=== PATIENT | female | born 1940 | race Caucasian/White ===

== ENCOUNTER → 2016-08-27 | Outpatient (CLI) | payer MEDICARE, BC ==
[~2016-08-27] MED LIST: ACET-62 PO; ACID1TAB4 PO; ASCO10007 PO; ASPI-917 PO; BENA40TA3 PO; CARB15DR54 BOTH EYES; CART1TAB5 PO; CHOL200024 PO; INDA1.255 PO; NS FOR INJ. 20 ML VIAL INJ ONE; ONABOTULINUM TOXIN A 100 UNIT IM ONE; POTA10TA16 PO; RED600CA6 PO; VITA400C19 PO; VITAMIN B PO; [UNRECOGNIZED DRUG - CODE] PO; [UNRECOGNIZED DRUG - CODE] PO
== END ==
LOC: NEU 13:37
PROVIDERS: ATTEND Psychiatry & Neurology Neurology
DX: G24.3 Spasmodic torticollis (principal)
CPT/HCPCS: 64616; 95874; J0585

== ENCOUNTER 2016-10-20 13:25 | Observation (INO) ==
--- NOTE | 2016-10-20 13:48 | History & Physical Report ---
History of Present Illness Date: Chief complaint: Left arm weakness HPI: Natalie Alejo is a 76 year old woman who was transferred from [facility] ED to [facility] on 10/20/16 for further evaluation of stroke-like symptoms. She began having "wobbling", and weakness in her left arm around 0850 on 10/20/16. These symptoms started while she was driving, and became worse, so much that her left arm was " weight" and became numb - she was unable to use it whatsoever. However, in about 2.5 hours, she regained motor function and feeling. She denies any other deficits such as dysphagia, difficulty speaking, visual changes , or mental status changes. She complained of a mild headache earlier this morning (while swimming), but that resolved. In [place], vitals were stable but there was a difference in BP from right to left: Right was 121/58 (sitting) and left was 164/67 (lying). CT head was negative for acute bleed or abnormality ; positive findings for pericallosal lipoma and atrophy. EKG was read as sinus, 1st deg AVB, incomplete RBBB. On exam, left shoulder was unable to be adequately tested b/c of chronic pain. The provider noted mild ataxia of the left fingers and wrist. WBC was normal (9.3), h&h was normal (14.4, 42.1), platelets were 268; INR was 1.0; chemistries were unremarkable (na 141, K 4.0, Cl 106, CO2 24, BUN 19, Cr 0.72); D-dimer was elevated at 831 (range 0-499). Dr. Floyd Wood, [facility], was notified, and given her low NIH scale of 1-2 with minimal deficits, did not recommend thrombolytics. By the time she arrived to [facility], her left arm was back to baseline but she stated that her head felt "funny"; and was shivering cold. She reports otherwise she's been in her typical state of health with chronic neck and shoulder problems - no fevers, cough/cold, visual changes, changes swallowing, dizziness or weakness, chest pain or dyspnea, palpitations, abdominal pain, n/v/ d, constipation, urinary problems, leg swelling, or rashes. She is currently taking ASA daily, alternating 325 mg with 81 mg (she cut back from 325 daily because she was having problems with epistaxis). She admits that she fell about 1 1/2 weeks ago, as she was trying to pull up a dandelion and lost her balance - no syncope. Mrs. Alejo was admitted to observation status at [facility] for further evaluation of her stroke-like symptoms. Review of Systems - Constitutional Constitutional: Present: chills - EENMT Eyes: Present: as per HPI - Cardiovascular Cardiovascular: Absent: chest pain, palpitations, syncope Vascular: Absent: pedal edema - Respiratory Respiratory: Absent: cough, dyspnea - Gastrointestinal Gastrointestinal: Absent: abdominal pain, change in bowel habits, nausea, vomiting - Genitourinary Genitourinary: Absent: dysuria, urinary frequency, urinary urgency - Musculoskeletal Musculoskeletal: Present: arthralgias (both shoulders), neck pain (chronic) - Neurological Neurological: Present: as per HPI - Psychiatric Psychiatric: Absent: anxiety - Hematologic/Lymphatic Hematologic/Lymphatic: Present: as per HPI PFSH 1. HTN 2. 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 Carotid duplex - no significant stenosis or plaque 3. Cervical dystonia 4. Obesity 5. Shoulder pain - rotator cuff tears (suspected) Surgical History: Hernia surgery 07/23/16. [employer] Pacemaker for complete heart block 04/01/16 (Dr. Goldberg). LEATHA 03/25/16: EF 65%; aortic sclerosis; mild MR; mild TR (Dr. Goldberg). Cataract removed right eye 02/2016. Botox injections to neck (Dr. Sandoval). Right carpal tunnel release 2014 (Dr. Loera). Temporal artery biopsy 2013. Right hammertoe surgery 2007. Tonsillectomy 194 Family History: Father - of stroke at age 86 Mother - of progression of Alzheimer at age 86 Brother - glaucoma Daughters - alive and well Smoking status: Never smoker Substance use type: does not use Alcohol intake frequency: does not drink Housing: house Household members: other () Current occupational status: retired Previous occupational history: Worked various jobs; special education secretary of [employer] Does patient use chewing tobacco?: No Social history: PCP: Dr. Arrington CV: Dr. Goldberg Neuro: Dr. Sylvester Medications Home Medications Medication Instructions Recorded Confirmed Type Acetaminophen 1,000 mg PO Q8H PRN #0 10/24/14 History Ascorbic Acid [Vitamin C] 1,000 mcg PO WS #0 10/24/14 History Benazepril HCl 40 mg PO DAILY #0 10/24/14 History Vitamin E 400 unit PO WL #0 10/24/14 History Alpha Lipoic Acid 200 mg PO WL #0 03/24/16 History Cartilage/Collagen/Bor/Hyalur 1 tab PO WL #0 03/24/16 History [Joint Health Tablet] Red Yeast Rice 600 mg PO WS #0 03/24/16 History L. Acidophilus/L.bulgaricus 2 tab PO WS #0 03/25/16 History [Lactinex Chewable Tablet] VITAMIN B6 (BORON) 15 mg PO WS #0 03/25/16 History Aspirin [Aspirin EC] 325 mg PO DAILY #0 04/21/16 History Carboxymethylcellulose Sodium 1 drop BOTH EYES QID PRN #0 04/21/16 History [Thera Tears] Cholecalciferol (Vitamin D3) PO WS #0 04/21/16 History (Vitamin D) Garlic 600 mg PO WL #0 04/21/16 History Indapamide 1.25 mg PO DAILY #0 04/21/16 History Potassium Chloride ER Tab [K-Dur] 10 meq PO WL #0 04/21/16 History Allergies Allergy/AdvReac Type Severity Reaction Status Date / Time Sulfa (Sulfonamide Allergy Unknown UNKNOWN Verified 04/21/16 13:30 Antibiotics) Exam Height: 1.68 m Weight: 84.7 kg - Constitutional Present: no acute distress, well nourished, well developed, cooperative - Routine HEENT Exam Head: Present: normocephalic, atraumatic Eye: Present: EOMI, PERRL, normal accommodation. Absent: conjunctival icterus, scleral injection ENT: Present: mucous membranes dry - Routine Neck Exam Present: supple. Absent: full ROM (neck stiffness - chronic resulting in decreased ROM), lymphadenopathy - Routine Respiratory Exam Present: CTA bilaterally - Routine Cardiovascular Exam Present: S1, S2, murmur (2/6 systolic murmur) - Routine Abdominal Exam Present: soft, normoactive bowel sounds, tenderness, non distended, non tender - Routine Extremities Exam Present: no edema. Absent: full ROM (limited ROM to both shoulders - difficulty with flexion and abduction) - Routine Skin Exam Present: intact, warm - Routine Neurological Exam Present: alert, oriented X3, CN II-XII intact, moving all extremities, vision grossly intact, hearing grossly intact, normal speech. Absent: sensory deficit , motor deficit, pronator drift, altered mental status, nystagmus, facial asymmetry - Detailed Neurological Exam: Coma Scale Coma scale eye opening: spontaneous Coma scale motor response: obeys commands Coma scale verbal response: oriented Coma scale total: 15 - Routine Psychiatric Exam Present: normal affect, normal thought process, cooperative, good insight, good judgment Assessment and Plan (1) Left arm weakness Current visit: Yes Status: Acute (2) Stroke Current visit: Yes Status: Acute (3) Pacemaker Current visit: Yes Status: Chronic (4) HTN (hypertension) Current visit: Yes Status: Chronic Assessment and Plan: Assessment: 76 y/o woman with left arm weakness, resolved; hx stroke in 2016 with full workup at that time. 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 Carotid duplex - no significant stenosis or plaque. LEATHA on 03/25/16: EF 65%; aortic sclerosis; mild MR; mild TR. Pacemaker was inserted for complete heart block and 5-sec ventricular inactivity on 04/01/16 (Dr. Goldberg) Plan: 1. Admit to observation status. 2. Check with MR to see if pacemaker has been FDA approved, and obtain brain MR if possible 3. Check lipid panel 4. Consult Dr. Sylvester - would like opinion on antithrombolytic therapy; ie change to Plavix or Coumadin since failing ASA? 5. Will not obtain echo or carotid doppler since those were done in Feb and Mar 2016 6. Interrogate PPM, looking for any recent arrhythmias 7. Consult PT/OT/Speech therapy 8. Labs reviewed from [place] ED - no metabolic findings to support symptoms. Check UA for completeness. 9. Neuro checks q shift. No deficits noted on H&P, but per ED notes she had left hand mild ataxia - resolved on arrival to [facility] with good fine motor control. 10. Elevated D-dimer in [place] - no suggestion of VTE. A/P were discussed with Dr. Cerda. Hospital Course Summary Disclaimer: The visit summary below is not to be considered part of the above Progress Note. Hospital Course: 10/20/16 15:22 Assessment: 76 y/o woman with left arm weakness, resolved; hx stroke in 2016 with full workup at that time. 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 Carotid duplex - no significant stenosis or plaque. LEATHA on 03/25/16: EF 65%; aortic sclerosis; mild MR; mild TR. Pacemaker was inserted for complete heart block and 5-sec ventricular inactivity on 04/01/16 (Dr. Goldberg) Plan: 1. Admit to observation status. 2. Check with MR to see if pacemaker has been FDA approved, and obtain brain MR if possible 3. Check lipid panel 4. Consult Dr. Sylvester - would like opinion on antithrombolytic therapy; ie change to Plavix or Coumadin since failing ASA? 5. Will not obtain echo or carotid doppler since those were done in Feb and Mar 2016 6. Interrogate PPM, looking for any recent arrhythmias 7. Consult PT/OT/Speech therapy 8. Labs reviewed from [place] ED - no metabolic findings to support symptoms. Check UA for completeness. 9. Neuro checks q shift. No deficits noted on H&P, but per ED notes she had left hand mild ataxia - resolved on arrival to [facility] with good fine motor control. 10. Elevated D-dimer in [place] - no suggestion of VTE.
--- NOTE | 2016-10-20 17:10 | Magnetic Resonance Report ---
EXAM: MR head/brain wo con LOCATION OF DICTATION: [place] HISTORY: left arm paresthesias COMPARISON: No prior studies available for comparison. TECHNIQUE: Multiple contiguous axial and sagittal MRI images and sequences were obtained of the brain without contrast. FINDINGS: Tiny focus of restricted diffusion demonstrated within the right centrum semiovale region compatible with an acute ischemic insult. No additional areas of restricted diffusion are demonstrated within the cerebral or cerebellar hemispheres. There is no significant midline shift or mass effect. Basilar cisterns are patent. Moderate deep/subcortical white matter disease likely secondary to chronic small vessel ischemia. IMPRESSION: 1. Small focus of restricted diffusion within the right centrum semiovale region compatible with an acute cerebrovascular ischemic insult. 2. Moderate deep/subcortical white matter disease likely secondary to chronic small vessel ischemia. .
[2016-10-20] MEDS ORDERED: ASPIRIN 81 MG CHEWABLE TABLET PO ONE (18:04)
[2016-10-20] MEDS: CLOPIDOGREL 75 MG TABLET PO SCH (18:40)
[2016-10-20] MEDS ORDERED: ACETAMINOPHEN 325 MG TABLET PO PRN (20:34)
[2016-10-20] MEDS ORDERED: REFRESH CELLUVISC 1% Eye Drops 0.4ml EACH EYE PRN (20:36)
--- NOTE | 2016-10-21 07:09 | Consultation ---
DATE 10/20/2016 REFERRING PHYSICIAN Almas Cerda MD CHIEF COMPLAINT Left upper extremity weakness. HISTORY OF PRESENT ILLNESS The patient is a 76-year-old female with the history of cerebrovascular disease , hypertension, hyperlipidemia and cervical dystonia. The patient presented with acute onset left upper extremity weakness around 8:50 a.m. this morning. Her symptoms have progressed significantly within a few minutes and her left upper extremity became limp. The patient presented to the [place] ER. She was evaluated for acute stroke. She had a CT of the head that showed no acute bleed or acute brain lesion. There was evidence of pericallosal lipoma and atrophy. Her lab workup was unremarkable. Her blood pressure was around 164/ 67 and later improved. The patient's symptoms gradually improved while in the ER and she became symptom free around 11:30 a.m. The patient's case was discussed with me earlier in the morning and we suggested trying tPA at that time. This was not done due to the patient's improvements of symptoms. The patient was admitted for acute stroke in February 2016. At that time she had a multiple embolic stroke affecting the left cerebellar and the right occipital head regions. The patient had a cardiac evaluation including LEATHA and she was put on a pacemaker after she was found to have a first-degree heart block. There was no evidence of any intracardial blood clotting and she was eventually kept on aspirin 325 mg p.o. q.d. for stroke prevention. PHYSICAL EXAMINATION The patient was awake, alert, oriented x 3. Pupils were round, reactive and equal. Extraocular muscles were intact. Visual deras were full. Speech was fluent. Facial motor and sensory were symmetrical and normal. Motor examination in the right upper and lower extremities was 5/5. In the left upper extremity it was 4+/5. In the left lower extremity it was 5-/5. Sensory examination was slightly diminished to temperature sensation on the left upper extremity compared to the right. Deep tendon reflexes were 2/4. Plantar reflexes were equivocal bilaterally. Coordination for [id number] was slightly slower on the left compared to the right. Gait was slightly unsteady. The patient was having difficulty with tandem gait. ASSESSMENT Acute ischemic stroke associated with left upper extremity weakness and mild numbness. This has been improving since this morning. The patient continues to have mild residual weakness in the left upper extremity and mild sensory deficit to temperature sensation. The patient also has been complaining of mild headache prior to her symptoms and this has improved. 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 PLAN 1. Change aspirin to 81 mg p.o. q.d. and start Plavix 75 mg p.o. q.d. for stroke prevention. 2. Follow up on the result of the MRI of the brain to rule out acute stroke. 3. Agree with cardiac evaluation for arrhythmia including telemetry. 4. Provide good fluid intake. 5. Consider physical and occupational therapy as an outpatient if the patient continues to have weakness and numbness in the left upper extremity. [place]
[2016-10-21] MEDS: CLOPIDOGREL 75 MG TABLET PO SCH (09:40)
[2016-10-21] MEDS ORDERED: ASPIRIN 81 MG CHEWABLE TABLET PO SCH (11:00)
--- NOTE | 2016-10-21 11:27 | Discharge Summary ---
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 No additional areas of restricted diffusion are demonstrated within the cerebral or cerebellar hemispheres. There is no significant midline shift or mass effect. Basilar cisterns are patent. Moderate deep/subcortical white matter disease likely secondary to chronic small vessel ischemia. IMPRESSION: 1. Small focus of restricted diffusion within the right centrum semiovale region compatible with an acute cerebrovascular ischemic insult. 2. Moderate deep/subcortical white matter disease likely secondary to chronic small vessel ischemia. History of Present Illness HPI: Natalie Alejo is a 76 year old woman who was transferred from [facility] ED to [facility] on 10/20/16 for further evaluation of stroke-like symptoms. She began having "wobbling", and weakness in her left arm around 0850 on 10/20/16. These symptoms started while she was driving, and became worse, so much that her left arm was " weight" and became numb - she was unable to use it whatsoever. However, in about 2.5 hours, she regained motor function and feeling. She denies any other deficits such as dysphagia, difficulty speaking, visual changes , or mental status changes. She complained of a mild headache earlier this morning (while swimming), but that resolved. In [place], vitals were stable but there was a difference in BP from right to left: Right was 121/58 (sitting) and left was 164/67 (lying). CT head was negative for acute bleed or abnormality ; positive findings for pericallosal lipoma and atrophy. EKG was read as sinus, 1st deg AVB, incomplete RBBB. On exam, left shoulder was unable to be adequately tested b/c of chronic pain. The provider noted mild ataxia of the left fingers and wrist. WBC was normal (9.3), h&h was normal (14.4, 42.1), platelets were 268; INR was 1.0; chemistries were unremarkable (na 141, K 4.0, Cl 106, CO2 24, BUN 19, Cr 0.72); D-dimer was elevated at 831 (range 0-499). Dr. Floyd Wood, [facility], was notified, and given her low NIH scale of 1-2 with minimal deficits, did not recommend thrombolytics. By the time she arrived to [facility], her left arm was back to baseline but she stated that her head felt "funny"; and was shivering cold. She reports otherwise she's been in her typical state of health with chronic neck and shoulder problems - no fevers, cough/cold, visual changes, changes swallowing, dizziness or weakness, chest pain or dyspnea, palpitations, abdominal pain, n/v/ d, constipation, urinary problems, leg swelling, or rashes. She is currently taking ASA daily, alternating 325 mg with 81 mg (she cut back from 325 daily because she was having problems with epistaxis). She admits that she fell about 1 1/2 weeks ago, as she was trying to pull up a dandelion and lost her balance - no syncope. Mrs. Alejo was admitted to observation status at [facility] for further evaluation of her stroke-like symptoms. Hospital Course Hospital course: Natalie Alejo was admitted to observation status for stroke-like symptoms. Given her cardiac history of heart block, her pacemaker was interrogated. MRI was obtained, showing a small right acute ischemic infarct. Dr. Sylvester was consulted and agreed with MRI report. Her clinical symptoms were consistent with the location of the infarct - she had deficits in her left hand/arm fine motor coordination. PT and OT were both consulted. PT did not feel she needed to continue with their services, but with her coordination deficits, OT recommended outpatient therapy, which she will plan to do in [place]. Echo and carotid dopplers were deferred because they were obtained in March,. Lipid panel was assessed, which was abnormal: triglycerides w193; cholesterol 253, LDL 167, VLDL 38.6, HDL 47. We recommended to start a statin, but pt declined - she didn't want to take another medication. However, she will continue to exercise and try to eat a heart-healthy diet. She will also continue her [id number] meds for HLD. Recommend f/u with Dr. Arrington in a week; call Dr. Sylvester's office for outpatient f/u. Discharge instructions were reviewed with Natalie and she verbalized an understanding. On day of discharge , she had reduced fine motor control (alternating movements) of her left hand/ arm; lungs were clear, heart was RRR and she was A&O x3. Discharge was discussed with both Dr. Sylvester and Dr. Cerda. This is a general summation of the patient's hospital course. For more details please refer to the entire medical record. Discharge Plan - Med Rec/Dispo Referrals/Follow Up: Bri Arrington MD [Family Provider] - Della Sylvester MD [Physician] - Ion Goldberg MD [Physician] - Prescriptions: New Clopidogrel [Plavix] 75 mg PO DAILY #30 Continue Ascorbic Acid [Vitamin C] 1,000 mcg PO WS #0 Red Yeast Rice 600 mg PO WS #0 Indapamide 1.25 mg PO DAILY #0 Benazepril HCl 40 mg PO DAILY #0 Vitamin E 400 unit PO WL #0 Acetaminophen 1,000 mg PO Q8H PRN #0 PRN Reason: PAIN Cartilage/Collagen/Bor/Hyalur [Joint Health Tablet] 1 tab PO WL #0 Alpha Lipoic Acid 200 mg PO WL #0 VITAMIN B6 (BORON) 15 mg PO WS #0 L. Acidophilus/L.bulgaricus [Lactinex Chewable Tablet] 2 tab PO WS #0 Potassium Chloride ER Tab [K-Dur] 10 meq PO WL #0 Garlic 600 mg PO WL #0 Cholecalciferol (Vitamin D3) (Vitamin D) PO WS #0 Carboxymethylcellulose Sodium [Thera Tears] 1 drop BOTH EYES QID PRN #0 PRN Reason: DRY EYES Changed Aspirin Chewable [ASA] 81 mg PO DAILY #30 Discontinued Aspirin [Aspirin EC] 325 mg PO DAILY #0 - Disposition 01 Discharged Home, Self-Care
== END 2016-10-21 13:10 | disposition home or self-care (01) ==
LOC: MED 13:25 → INTOOBSV 15:33
PROVIDERS: ADMIT Internal Medicine; ATTEND Internal Medicine